=== PATIENT | male | born 1950 | race Caucasian/White ===

== ENCOUNTER 2022-03-27 02:22 | Observation (INO) ==
[2022-03-27 02:51] LABS: Basophils # 0.1 10*3/uL (0.0-0.2); Basophils % 0.4 % (0.0-0.8); Eosinophils # 0.1 10*3/uL (0.0-0.87); Eosinophils % 0.6 % (0.00-10.9); Hemoglobin 16.2 GM/DL (14.0-18.0); Immature Granulocytes % 1.1 %; Immature Granulocytes Absolute 0.13 #; Lymphocytes # 1.1 10*3/uL (1.4-4.0); Lymphocytes % 9.3 % (21.2-54.2); Mean Corpuscular HGB Conc 35.2 GM/DL (32-36); Mean Platelet Volume 10.6 FL (9.6-12.0); Monocytes % 8.4 % (1.7-12.7); Neutrophils % 80.2 % (38.7-73.9); Platelet Count 257 T/CUMM (130-400); Red Blood Count 4.84 MC/CUMM (3.8-5.5); Red Cell Distribution Width 12.8 % (9.3-17.3); White Blood Count 11.5 T/CUMM (4-12)
[2022-03-27] MEDS ORDERED: ASPIRIN EC 325 MG TABLET PO STA (03:01)
[2022-03-27 03:14] LABS: Albumin 3.7 G/DL (3.4-5.0); Bilirubin,Total 0.9 MG/DL (0.20-1.00); Calcium 8.7 MG/DL (8.5-10.1); Osmolality,Calculated 254.1 MOS/KG (273-304); Potassium 3.8 MMOL/L (3.5-5.1)
[2022-03-27] MEDS: NITROGLYCERIN SL 0.4 MG TABLET SL PRN ×3 (03:20→05:12)
[2022-03-27 03:35] LABS: PT Patient Result 10.6 SECS (10.1-12.1)
[2022-03-27] MEDS ORDERED: SODIUM CHLORIDE 0.9% 1,000 ML IV STA (03:38)
[2022-03-27] MEDS ORDERED: GLUCAGON 1 MG VIAL IM PRN (04:00)
[2022-03-27] MEDS ORDERED: MORPHINE 2 MG/1 ML SYRINGE IV PRN (04:04)
[2022-03-27] MEDS ORDERED: ONDANSETRON 4 MG/2 ML VIAL IV PRN (04:04)
[2022-03-27] MEDS ORDERED: MAGNESIUM SULF RIDER 2 GM/50 ML PREMIX IV PRN (04:04)
[2022-03-27] MEDS ORDERED: DEXTROSE 10% 250 ML BAG IV PRN (04:42)
[2022-03-27] MEDS ORDERED: LACTATED RINGERS 1,000 ML IV SCH (05:00)
[2022-03-27 06:30] LABS: Cholesterol 111 MG/DL (50-200); HDL Cholesterol 43 MG/DL (40-60); Risk Ratio 2.58; Thyroid Stimulating Hormone 0.286 uIU/ml (0.358-3.74); Triglycerides 80 MG/DL (2-150)
[2022-03-27] MEDS: ALUM/MAG/SIMETH/LIDO VISC 1:1 30 ML BOTTLE PO ONE ×2 (07:47→08:31)
[2022-03-27] MEDS ORDERED: DIGOXIN 0.125 MG TABLET PO SCH (09:00)
[2022-03-27] MEDS ORDERED: ENOXAPARIN 40 MG/0.4 ML SYRINGE SUBCUT SCH (09:00)
[2022-03-27] MEDS ORDERED: PANTOPRAZOLE 40 MG TABLET PO SCH (09:00)
[2022-03-27] MEDS ORDERED: KETOROLAC 30 MG/1 ML VIAL IV ONE (11:47)
[2022-03-27 11:55] LABS: Calcium 8.1 MG/DL (8.5-10.1); Osmolality,Calculated 260.5 MOS/KG (273-304); Potassium 3.8 MMOL/L (3.5-5.1)
[2022-03-27] MEDS ORDERED: MAGNESIUM SULF RIDER 4 GM/100 ML PREMIX IV ONE (12:00)
[2022-03-27 13:11] LABS: Free T4 (Free Thyroxine) 1.08 NG/DL (0.76-1.46)
[2022-03-27 16:58] VITALS: BP 124/62
== END 2022-03-27 16:58 | disposition home or self-care (01) ==
LOC: N.EDINP 02:22 → N.ED 02:22 → N.TELEN 06:12
PROVIDERS: ADMIT Internal Medicine; ATTEND Internal Medicine